=== PATIENT | male | born 1970 | race Caucasian/White ===

== ENCOUNTER 2020-12-28 11:35 | Emergency (ER) | payer MEDICARE, OTHER ==
[~2020-12-28] VITALS: Ht 175.3 cm; Wt 86.4 kg
[2020-12-28 11:50] VITALS: TEMP 97.8
[2020-12-28 12:07] LABS: BASO % 0.4 % (0.0-2.0); EOS # 0.1 (0.0-0.7); EOS % 0.7 % (0-4.0); GRAN # 4.3 (1.4-6.5); GRAN % 60.1 % (42.2-75.2); HEMATOCRIT 44.4 % (42.0-52.0); HEMOGLOBIN 16.3 g/dl (13.5-18.0); LYMPH # 2.3 (1.2-3.4); LYMPH % 31.7 % (20.0-51.0); MEAN CELL VOLUME 82 fl (80.0-100.0); MEAN CORPUSCULAR HEMOGLOBIN 30 pg (27.0-31.0); MEAN CORPUSCULAR HGB CONC 37 g/dl (33.0-37.0); MEAN PLATELET VOLUME 10.6 fl (7.4-10.4); MONO # 0.5 (0.1-0.6); PLATELET COUNT 228 K/mm3 (130-400); RED BLOOD COUNT 5.39 M/mm3 (4.20-5.60)
[2020-12-28 12:12] LABS: INR 1.2 (0.8-3.0); PROTHROMBIN TIME 13.4 SECONDS (9.7-12.8)
[2020-12-28 12:16] LABS: ALANINE AMINOTRANSFERASE 47 U/L (4-49); ALBUMIN 4.5 gm/dL (3.5-5.0); ALKALINE PHOSPHATASE 93 U/L (50-136); ANION GAP 10 mmol/L (7-16); AST,SGOT 47 U/L (15-37); BILIRUBIN,TOTAL 1.9 mg/dL (0.0-1.0); BLOOD UREA NITROGEN 13 mg/dL (9-20); CALCIUM 8.9 mg/dL (8.4-10.2); CARBON DIOXIDE 28 mmol/L (22-30); CHLORIDE 98 mmol/L (98-107); CREATININE, serum 0.94 (0.66-1.25); GLUCOSE 95 mg/dL (74-106); POTASSIUM 3.3 mmol/L (3.4-5.0); SODIUM 136 mmol/L (137-145); TOTAL PROTEIN 7.8 gm/dL (6.4-8.2)
[2020-12-28 12:19] LABS: ALCOHOL(ethanol),MEDICAL < 10 mg/dL
[2020-12-28 13:24] VITALS: BP 114/79; PULSE 55
[2021-05-07] MEDS ORDERED: NEURONTIN300 MG/CAP PO (10:19)
[2021-05-07] MEDS ORDERED: ZOLOFT 100MG100 MG PO (10:19)
[2021-05-07] MEDS ORDERED: ABILIFY 15MG TA15 MG PO (10:20)
[2021-05-07] MEDS ORDERED: NAPROSYN500 MG PO (11:31)
[2021-05-07] MEDS ORDERED: FLEXERIL 1010 MG/TAB PO (11:31)
== END 2020-12-28 13:24 | disposition home or self-care (01) ==
LOC: COL.ER 11:35
PROVIDERS: Emergency Medicine
DX: R29.0 Tetany (principal); R29.810 Facial weakness; Z88.1 Allergy status to other antibiotic agents
CPT/HCPCS: J3360; J7030; Q9967

== ENCOUNTER 2021-04-28 19:07 | Emergency (ER) | payer MEDICARE, OTHER ==
[~2021-04-28] VITALS: Ht 170.2 cm; Wt 86.4 kg
[2021-04-28 19:59] LABS: BASO % 0.6 % (0.0-2.0); EOS # 0.1 (0.0-0.7); EOS % 0.7 % (0-4.0); GRAN # 4.8 (1.4-6.5); GRAN % 69.2 % (42.2-75.2); HEMATOCRIT 45.2 % (42.0-52.0); LYMPH # 1.6 (1.2-3.4); LYMPH % 22.7 % (20.0-51.0); MEAN CELL VOLUME 84 fl (80.0-100.0); MEAN CORPUSCULAR HEMOGLOBIN 30 pg (27.0-31.0); MEAN CORPUSCULAR HGB CONC 35 g/dl (33.0-37.0); MEAN PLATELET VOLUME 10.6 fl (7.4-10.4); MONO # 0.5 (0.1-0.6); MONO % 6.5 % (1.7-9.3); PLATELET COUNT 152 K/mm3 (130-400); RED BLOOD COUNT 5.37 M/mm3 (4.20-5.60); REDCELL DISTRIBUTION WIDTH-CV 13.2 % (11.5-14.5)
[2021-04-28 20:10] LABS: ALBUMIN 4.7 gm/dL (3.5-5.0); BILIRUBIN,TOTAL 1.6 mg/dL (0.0-1.0); CALCIUM 9.7 mg/dL (8.4-10.2); CREATININE, serum 1.04 (0.66-1.25); POTASSIUM 4.2 mmol/L (3.4-5.0); TOTAL PROTEIN 7.8 gm/dL (6.4-8.2)
[2021-04-28 21:06] VITALS: BP 135/93; PULSE 73
[2021-04-28 21:06] LABS: TSH w REFLEX 2.083 uIU/mL (0.350-4.940)
[2021-05-07] MEDS ORDERED: ZOLOFT 100MG100 MG PO (10:19)
[2021-05-07] MEDS ORDERED: NEURONTIN300 MG/CAP PO (10:19)
[2021-05-07] MEDS ORDERED: ABILIFY 15MG TA15 MG PO (10:20)
[2021-05-07] MEDS ORDERED: NAPROSYN500 MG PO (11:31)
[2021-05-07] MEDS ORDERED: FLEXERIL 1010 MG/TAB PO (11:31)
== END 2021-04-28 21:07 | disposition home or self-care (01) ==
LOC: COL.ER 19:07
PROVIDERS: Emergency Medicine
DX: R29.0 Tetany (principal)
CPT/HCPCS: J2060

== ENCOUNTER → 2021-05-07 | Emergency (ER) | payer MEDICARE, OTHER ==
[~2021-05-07] VITALS: Ht 175.3 cm; Wt 84.1 kg
[~2021-05-07] MED LIST: ABILIFY 15MG TA15 MG PO; FLEXERIL 1010 MG/TAB PO; NAPROSYN500 MG PO; NEURONTIN300 MG/CAP PO; ZOLOFT 100MG100 MG PO
[2021-05-07 10:09] VITALS: BP 134/96; PULSE 77; TEMP 97.2
== END ==
LOC: COL.ER 10:01
DX: M62.830 Muscle spasm of back (principal); G89.29 Other chronic pain; F31.9 Bipolar disorder, unspecified; Z79.899 Other long term (current) drug therapy
CPT/HCPCS: J1885

== ENCOUNTER 2021-05-12 15:39 | Emergency (ER) | payer MEDICARE, OTHER | END 2021-05-12 16:05 | disposition left against medical advice (07) | LOC: COL.ER 15:39 | DX: R69 Illness, unspecified (principal) ==

== ENCOUNTER 2021-06-03 14:07 | Emergency (ER) | payer MEDICARE, OTHER ==
[~2021-06-03] VITALS: Ht 175.3 cm; Wt 81.8 kg
[2021-06-03 14:10] VITALS: TEMP 98.4
[2021-06-03 14:53] LABS: BASO % 0.3 % (0.0-2.0); EOS % 0.5 % (0-4.0); GRAN # 4.2 K/mm3 (1.4-6.5); GRAN % 72.4 % (42.2-75.2); HEMATOCRIT 44.3 % (42.0-52.0); HEMOGLOBIN 15.8 g/dl (13.5-18.0); LYMPH # 1.2 K/mm3 (1.2-3.4); LYMPH % 20.9 % (20.0-51.0); MEAN CELL VOLUME 82 fl (80.0-100.0); MEAN CORPUSCULAR HEMOGLOBIN 29 pg (27.0-31.0); MEAN CORPUSCULAR HGB CONC 36 g/dl (33.0-37.0); MEAN PLATELET VOLUME 10.2 fl (7.4-10.4); MONO # 0.3 K/mm3 (0.1-0.6); MONO % 5.7 % (1.7-9.3); PLATELET COUNT 163 K/mm3 (130-400); RED BLOOD COUNT 5.39 M/mm3 (4.20-5.60)
[2021-06-03 15:13] LABS: BILIRUBIN,TOTAL 1.3 mg/dL (0.2-1.2); CREATININE, serum 1.05 mg/dL (0.72-1.25); POTASSIUM 3.7 mmol/L (3.5-4.5); TOTAL PROTEIN 6.9 gm/dL (6.2-8.1)
[2021-06-03 15:37] LABS: ALCOHOL(ethanol),MEDICAL < 10 mg/dL (0-10)
[2021-06-03 16:59] LABS: TRICYCLIC ANTIDEPRESS URINE NEGATIVE
[2021-06-03 17:14] VITALS: BP 110/88; PULSE 69
== END 2021-06-03 17:14 | disposition home or self-care (01) ==
LOC: COL.ER 14:07
PROVIDERS: Physician Assistant
DX: R29.0 Tetany (principal); R56.9 Unspecified convulsions; F41.9 Anxiety disorder, unspecified; F32.A Depression, unspecified; Z79.899 Other long term (current) drug therapy
CPT/HCPCS: J2060; J7030

== ENCOUNTER 2021-06-23 10:25 | Emergency (ER) | payer MEDICARE, OTHER ==
[~2021-06-23] VITALS: Ht 175.3 cm; Wt 84.1 kg
[2021-06-23 10:40] VITALS: TEMP 98.6
[2021-06-23 12:21] VITALS: BP 130/80; PULSE 60
== END 2021-06-23 12:23 | disposition home or self-care (01) ==
LOC: COL.ER 10:25
DX: F41.9 Anxiety disorder, unspecified (principal); R29.0 Tetany; G40.909 Epilepsy, unspecified, not intractable, without status epilepticus; Z79.899 Other long term (current) drug therapy
CPT/HCPCS: J1953; J2060

== ENCOUNTER 2021-07-09 10:09 | Emergency (ER) | payer MEDICARE, OTHER ==
[~2021-07-09] VITALS: Ht 177.8 cm; Wt 84.1 kg
[2021-07-09 10:30] VITALS: TEMP 98
[2021-07-09] MEDS ORDERED: FLEXERIL 1010 MG/TAB PO (12:19)
[2021-07-09 12:39] VITALS: PULSE 69
== END 2021-07-09 12:39 | disposition home or self-care (01) ==
LOC: COL.ER 10:09
DX: M54.50 Low back pain, unspecified (principal); F41.9 Anxiety disorder, unspecified; F32.A Depression, unspecified; G89.29 Other chronic pain; Z79.899 Other long term (current) drug therapy
CPT/HCPCS: J1885

== ENCOUNTER 2021-08-05 02:33 | Emergency (ER) | payer MEDICARE, OTHER ==
[~2021-08-05] VITALS: Ht 175.3 cm; Wt 84.1 kg
[2021-08-05 02:37] VITALS: TEMP 98.2
[2021-08-05 03:53] VITALS: BP 123/87; PULSE 71
== END 2021-08-05 03:53 | disposition home or self-care (01) ==
LOC: COL.ER 02:33
DX: M54.50 Low back pain, unspecified (principal); F41.9 Anxiety disorder, unspecified; F32.A Depression, unspecified; G40.909 Epilepsy, unspecified, not intractable, without status epilepticus; Z87.39 Personal history of other diseases of the musculoskeletal system and connective tissue; Z79.899 Other long term (current) drug therapy
CPT/HCPCS: J1885; J3360

== ENCOUNTER 2021-09-02 22:58 | Emergency (ER) | payer MEDICARE, OTHER ==
[~2021-09-02] VITALS: Ht 175.3 cm; Wt 90.9 kg
[2021-09-02 23:36] LABS: BASO % 0.6 % (0.0-2.0); EOS # 0.1 K/mm3 (0.0-0.7); EOS % 1.4 % (0.0-4.0); GRAN # 3.7 K/mm3 (1.4-6.5); GRAN % 57.8 % (42.2-75.2); HEMATOCRIT 43.9 % (42.0-52.0); HEMOGLOBIN 15.7 g/dl (13.5-18.0); LYMPH # 2.1 K/mm3 (1.2-3.4); LYMPH % 33.4 % (20.0-51.0); MEAN CELL VOLUME 82 fl (80.0-100.0); MEAN CORPUSCULAR HEMOGLOBIN 29 pg (27-31); MEAN CORPUSCULAR HGB CONC 36 g/dl (33.0-37.0); MEAN PLATELET VOLUME 10.3 fl (7.4-10.4); MONO # 0.4 K/mm3 (0.1-0.6); MONO % 6.3 % (1.7-9.3); PLATELET COUNT 171 K/mm3 (130-400); RED BLOOD COUNT 5.38 M/mm3 (4.20-5.60); REDCELL DISTRIBUTION WIDTH-CV 13.5 % (11.5-14.5)
[2021-09-02 23:43] LABS: COLLECTION METHOD CLEAN CATCH
[2021-09-02 23:49] LABS: PH 7 (5-8); SQUAMOUS EPITHELIAL None Seen /hpf (0-10); URINE APPEARANCE Clear (CLEAR/HAZY); URINE BACTERIA None Seen /hpf (NONE SEEN); URINE BILIRUBIN Negative (NEGATIVE); URINE BLOOD Negative (NEGATIVE); URINE COLOR Straw (YELLOW); URINE GLUCOSE Negative (NEGATIVE); URINE KETONE Negative (NEGATIVE); URINE LEUKOCYTE ESTERASE Negative (NEGATIVE); URINE NITRATE Negative (NEGATIVE); URINE PROTEIN(semi-quant) Negative (NEGATIVE); URINE RBC None Seen /hpf (0-2); URINE UROBILINOGEN Negative (NEGATIVE)
[2021-09-02 23:52] LABS: ALANINE AMINOTRANSFERASE 46 U/L (0-55); ALBUMIN 4.2 gm/dL (3.5-5.0); ALKALINE PHOSPHATASE 77 U/L (40-150); ANION GAP 12 mmol/L (7-16); AST,SGOT 27 U/L (5-34); BILIRUBIN,TOTAL 0.9 mg/dL (0.2-1.2); BLOOD UREA NITROGEN 10 mg/dL (8-26); C-REACTIVE PROTEIN 0.26 mg/dL (0.00-0.50); CALCIUM 9.3 mg/dL (8.4-10.2); CARBON DIOXIDE 24 mmol/L (22-29); CHLORIDE 105 mmol/L (98-107); CREATININE, serum 1.02 mg/dL (0.72-1.25); GLUCOSE 126 mg/dL (70-99); POTASSIUM 3.9 mmol/L (3.5-4.5); SODIUM 141 mmol/L (136-145); TOTAL PROTEIN 7.3 gm/dL (6.2-8.1)
[2021-09-02 23:58] LABS: TROPONIN-I < 0.010 ng/mL (0.00-0.033)
[2021-09-03] MEDS ORDERED: PRINIVIL10 MG PO (01:24)
[2021-09-03 01:51] VITALS: BP 125/89; PULSE 72; TEMP 98.4
== END 2021-09-03 01:51 | disposition home or self-care (01) ==
LOC: COL.ER 22:58
PROVIDERS: Nurse Practitioner
DX: R53.83 Other fatigue (principal); I10 Essential (primary) hypertension; F32.A Depression, unspecified; F41.9 Anxiety disorder, unspecified; G40.909 Epilepsy, unspecified, not intractable, without status epilepticus; Z79.899 Other long term (current) drug therapy; Z20.822 Contact with and (suspected) exposure to COVID-19
CPT/HCPCS: J2405

== ENCOUNTER 2021-10-12 16:36 | Emergency (ER) | payer MEDICARE, OTHER ==
[~2021-10-12] VITALS: Ht 175.3 cm; Wt 86.4 kg
[~2021-10-12 16:36] MED LIST changes: +PRINIVIL10 MG PO
[2021-10-12 16:52] VITALS: TEMP 97.2
[2021-10-12] MEDS ORDERED: ATIVAN 1MG T1 MG/TAB PO (17:53)
[2021-10-12 17:56] VITALS: BP 129/79; PULSE 66
== END 2021-10-12 18:00 | disposition home or self-care (01) ==
LOC: COL.ER 16:36
DX: M51.36 Other intervertebral disc degeneration, lumbar region (principal); G89.29 Other chronic pain; Z79.899 Other long term (current) drug therapy
CPT/HCPCS: J1885; J3360

== ENCOUNTER 2021-11-19 11:09 | Emergency (ER) | payer MEDICARE, OTHER ==
[~2021-11-19] VITALS: Ht 175.3 cm; Wt 81.8 kg
[~2021-11-19 11:09] MED LIST changes: +ATIVAN 1MG T1 MG/TAB PO
[2021-11-19 11:22] VITALS: TEMP 97.8
[2021-11-19 11:34] LABS: BASO # 0.1 K/mm3 (0.0-0.2); BASO % 0.8 % (0.0-2.0); EOS # 0.1 K/mm3 (0.0-0.7); EOS % 1.1 % (0.0-4.0); GRAN # 4.2 K/mm3 (1.4-6.5); GRAN % 64.4 % (42.2-75.2); HEMATOCRIT 43.8 % (42.0-52.0); HEMOGLOBIN 15.7 g/dl (13.5-18.0); LYMPH # 1.7 K/mm3 (1.2-3.4); LYMPH % 26.7 % (20.0-51.0); MEAN CELL VOLUME 84 fl (80.0-100.0); MEAN CORPUSCULAR HEMOGLOBIN 30 pg (27-31); MEAN CORPUSCULAR HGB CONC 36 g/dl (33.0-37.0); MEAN PLATELET VOLUME 10.6 fl (7.4-10.4); MONO # 0.4 K/mm3 (0.1-0.6); MONO % 6.8 % (1.7-9.3); PLATELET COUNT 168 K/mm3 (130-400); RED BLOOD COUNT 5.19 M/mm3 (4.20-5.60); REDCELL DISTRIBUTION WIDTH-CV 13.4 % (11.5-14.5)
[2021-11-19 11:51] LABS: ALBUMIN 4.3 gm/dL (3.5-5.0); BILIRUBIN,TOTAL 1.4 mg/dL (0.2-1.2); C-REACTIVE PROTEIN 0.3 mg/dL (0.00-0.50); CALCIUM 9.2 mg/dL (8.4-10.2); CREATININE, serum 1.13 mg/dL (0.72-1.25); TOTAL PROTEIN 7.3 gm/dL (6.2-8.1)
[2021-11-19 12:22] LABS: COLLECTION METHOD CLEAN CATCH
[2021-11-19 12:29] LABS: MUCOUS Present (NOT PRESENT); PH 5 (5-8); SQUAMOUS EPITHELIAL None Seen /hpf (0-10); URINE APPEARANCE Clear (CLEAR/HAZY); URINE BACTERIA None Seen /hpf (NONE SEEN); URINE BILIRUBIN Negative (NEGATIVE); URINE BLOOD Negative (NEGATIVE); URINE COLOR Yellow (YELLOW); URINE GLUCOSE Negative (NEGATIVE); URINE KETONE Negative (NEGATIVE); URINE LEUKOCYTE ESTERASE Negative (NEGATIVE); URINE NITRATE Negative (NEGATIVE); URINE PROTEIN(semi-quant) Negative (NEGATIVE); URINE RBC None Seen /hpf (0-2); URINE UROBILINOGEN Negative (NEGATIVE)
[2021-11-19 13:45] VITALS: BP 110/76; PULSE 58
== END 2021-11-19 13:45 | disposition home or self-care (01) ==
LOC: COL.ER 11:09
PROVIDERS: Family Medicine
DX: G40.909 Epilepsy, unspecified, not intractable, without status epilepticus (principal); G83.84 Todd's paralysis (postepileptic)
CPT/HCPCS: Q9967

== ENCOUNTER 2021-12-10 10:36 | Emergency (ER) | payer MEDICARE, OTHER ==
[~2021-12-10] VITALS: Ht 175.3 cm; Wt 84.1 kg
[2021-12-10 10:38] VITALS: TEMP 97.8
[2021-12-10 11:15] LABS: BASO % 0.4 % (0.0-2.0); EOS # 0.1 K/mm3 (0.0-0.7); EOS % 1.3 % (0.0-4.0); GRAN # 3.5 K/mm3 (1.4-6.5); HEMATOCRIT 41.5 % (42.0-52.0); HEMOGLOBIN 15.3 g/dl (13.5-18.0); LYMPH # 1.4 K/mm3 (1.2-3.4); LYMPH % 26.3 % (20.0-51.0); MEAN CELL VOLUME 82 fl (80.0-100.0); MEAN CORPUSCULAR HEMOGLOBIN 30 pg (27-31); MEAN CORPUSCULAR HGB CONC 37 g/dl (33.0-37.0); MEAN PLATELET VOLUME 10.2 fl (7.4-10.4); MONO # 0.4 K/mm3 (0.1-0.6); MONO % 7.6 % (1.7-9.3); PLATELET COUNT 180 K/mm3 (130-400); RED BLOOD COUNT 5.08 M/mm3 (4.20-5.60); REDCELL DISTRIBUTION WIDTH-CV 12.7 % (11.5-14.5)
[2021-12-10 11:32] LABS: BILIRUBIN,TOTAL 1.2 mg/dL (0.2-1.2); C-REACTIVE PROTEIN 0.22 mg/dL (0.00-0.50); CALCIUM 8.6 mg/dL (8.4-10.2); CREATININE, serum 0.92 mg/dL (0.72-1.25); POTASSIUM 3.9 mmol/L (3.5-4.5); TOTAL PROTEIN 6.6 gm/dL (6.2-8.1)
[2021-12-10 12:01] LABS: PROLACTIN 5.6 ng/mL (3.46-19.40)
[2021-12-10 12:26] VITALS: BP 119/76; PULSE 67
== END 2021-12-10 12:26 | disposition home or self-care (01) ==
LOC: COL.ER 10:36
PROVIDERS: Nurse Practitioner
DX: G40.909 Epilepsy, unspecified, not intractable, without status epilepticus (principal)
CPT/HCPCS: J1953

== ENCOUNTER 2024-01-09 01:51 | Emergency (ER) | payer MEDICARE, OTHER ==
[~2024-01-09] VITALS: Ht 175.3 cm; Wt 90.9 kg
[2024-01-09 02:02] VITALS: BP 123/80; TEMP 97.6
[2024-01-09] MEDS ORDERED: Ibuprofen 400 MG TAB PO ONE (03:15)
[2024-01-09 07:29] VITALS: PULSE 75
== END 2024-01-09 07:30 | disposition home or self-care (01) ==
LOC: COL.ER 01:51
DX: M25.531 Pain in right wrist (principal); M79.631 Pain in right forearm; W10.8XXA Fall (on) (from) other stairs and steps, initial encounter; Y93.89 Activity, other specified